=== PATIENT | female | born 1980 | race Caucasian/White ===

== ENCOUNTER 2019-03-02 15:43 | Emergency (ER) | payer BC ==
[2019-03-02 15:51] VITALS: BP 170/83
== END 2019-03-02 17:41 | disposition left against medical advice (07) ==
LOC: ED 15:43
DX: R03.0 Elevated blood-pressure reading, without diagnosis of hypertension (principal); R00.2 Palpitations; Z53.21 Procedure and treatment not carried out due to patient leaving prior to being seen by health care provider
CPT/HCPCS: 99282

== ENCOUNTER 2019-03-05 14:49 | Emergency (ER) | payer BC ==
--- NOTE | 2019-03-05 16:57 | ED ---
Hypertension - HPI Summary HPI Summary: 38 year old female presents with dizziness when she stands for the past couple days. She states that she checked her heart rate standing and it was 106. blood pressure has also been high. States it was at 140/90 today. States that she was unable to follow up with primary. She denies any chest pressure or shortness of breath. No states she is having vaginal bleeding for the past couple weeks. She is on high-dose progesterone to try and stop bleeding secondary to fibroids. h/h was recently checked and it was stable. She has been taking iron supplements. She denies any increase in vaginal bleeding. She denies any weakness. Denies any nausea vomiting. - History of Current Complaint Chief Complaint: EDHypertension Stated Complaint: HIGH BP,DIZZINESS PER PT Time Seen by Provider: 03/05/19 16:14 - Allergies/Home Medications Allergies/Adverse Reactions: Allergies Allergy/AdvReac Type Severity Reaction Status Date / Time cristy wort Allergy Intermediate Hives Uncoded 03/05/19 21:23 Home Medications: Home Medications Albuterol inh POWDER (NF) [Proair Respiclick] 1 - 2 puff INH Q4HR PRN 03/05/19 [ History Confirmed 03/05/19] Carbamazepine [Carbamazepine ER] 400 mg PO QPM 03/05/19 [History Confirmed 03/05] Iron 90 mg PO DAILY 03/05/19 [History Confirmed 03/05/19] Losartan TAB* [Cozaar TAB*] 50 mg PO DAILY 03/05/19 [History Confirmed 03/05/19] Norethindrone Acetate [Norethindrone AC (Lupaneta)] 5 mg PO TID 03/05/19 [ History Confirmed 03/05/19] PMH/Surg Hx/FS Hx/Imm Hx Endocrine/Hematology History: Denies: Hx Diabetes Cardiovascular History: Denies: Hx Pacemaker/ICD History: Denies: Hx Renal Disease Sensory History: Denies: Hx Hearing Aid Neurological History: Reports: Hx Seizures Psychiatric History: Denies: Hx Panic Disorder - Cancer History Hx Chemotherapy: No Hx Radiation Therapy: No - Surgical History Surgery Procedure, Year, and Place: EAR TUBES AGE 3 Infectious Disease History: No Infectious Disease History: Denies: Traveled Outside the [place] in Last 30 Days - Family History Known Family History: Positive: Non-Contributory - Social History Alcohol Use: Occasionally Substance Use Type: Reports: None Smoking Status (MU): Former Smoker Review of Systems Negative: Fever Negative: Chest Pain Negative: Shortness Of Breath Neurological: Other - dizziness All Other Systems Reviewed And Are Negative: Yes Physical Exam Triage Information Reviewed: Yes Vital Signs On Initial Exam: Initial Vitals Temp Pulse Resp BP Pulse Ox 98.1 F 90 16 134/92 100 03/05/19 14:52 03/05/19 14:52 03/05/19 14:52 03/05/19 14:52 03/05/19 14:52 Vital Signs Reviewed: Yes Appearance: Positive: Well-Appearing Skin: Positive: Warm, Dry Head/Face: Positive: Normal Head/Face Inspection Eyes: Positive: Normal, EOMI, JEM, Conjunctiva Clear ENT: Positive: Normal ENT inspection, Pharynx normal, TMs normal Respiratory/Lung Sounds: Positive: Clear to Auscultation, Breath Sounds Present Cardiovascular: Positive: Normal, RRR Musculoskeletal: Positive: Normal Neurological: Positive: Sensory/Motor Intact, Alert, Oriented to Person Place, Time, CN Intact II-III, Finger to Nose Psychiatric: Positive: Normal - [place] Coma Scale Best Eye Response: 4 - Spontaneous Best Motor Response: 6 - Obeys Commands Best Verbal Response: 5 - Oriented Coma Scale Total: 15 Procedures - Sedation Patient Received Moderate/Deep Sedation with Procedure: No Diagnostics - Vital Signs Vital Signs Temp Pulse Resp BP Pulse Ox 03/05/19 14:52 98.1 F 90 16 134/92 100 - Laboratory Result Diagrams: 03/05/19 17:04 03/05/19 17:04 Lab Statement: Any lab studies that have been ordered have been reviewed, and results considered in the medical decision making process. - EKG No standard instances Cardiac Rate: NL EKG Rhythm: Sinus Rhythm EKG Comparison: No Significant Change Summary of EKG Findings: sinus rhythm Re-Evaluation - Re-Evaluation First Eval Re-Evaluation Time: 17:52 Comment: became nauseous Hypertension Course/Dx - Course Course Of Treatment: 38 year old female presents with dizziness when she stands for the past couple days. She states that she checked her heart rate standing and it was 106. blood pressure has also been high. States it was at 140/90 today. States that she was unable to follow up with primary. She denies any chest pressure or shortness of breath. No states she is having vaginal bleeding for the past couple weeks. She is on high-dose progesterone to try and stop bleeding secondary to fibroids. h/h was recently checked and it was stable. She has been taking iron supplements. She denies any increase in vaginal bleeding. She denies any weakness. Denies any nausea vomiting. On exam has normal neuro exam. Is not currently dizzy. Lungs clear to auscultation. EKG shows sinus rhythm. wbc normal. hemoglobin 11.2. tsh normal. patient is not orthostatic. discussed should follow up with primary. could be dizzy due to vaginal bleeding which patient has hysterectomy scheduled in a month. patient understand and agrees with plan. - Diagnoses Differential Diagnosis/HQI PQRI: Hyperthyroidism, Renal Disease, Other - orthostatic hypotension Provider Diagnoses: Dizziness Discharge ED - Sign-Out/Discharge Documenting (check all that apply): Patient Departure - Discharge Plan Condition: Good Disposition: HOME Prescriptions: Ondansetron ODT TAB* [Zofran 4 MG Odt TAB*] 4 mg PO Q6H PRN #20 tab.odt PRN Reason: Nausea Patient Education Materials: Dizziness (ED) Referrals: Patricia Cheng NP [Primary Care Provider] - Additional Instructions: take zofran every 6 hours for nausea stand up slowly follow up with primary within 5 days Return to ED if develop any new or worsening symptoms - Billing Disposition and Condition Condition: GOOD Disposition: Home
[2019-03-05 17:12] LABS: ABS Lymphocytes 1.7 10^3/ul (1.0-4.8); ABS Monocytes 0.3 10^3/ul (0-0.8); ABS Neutrophils 3.9 10^3/ul (1.5-7.7); Hematocrit 32 % (35-47); Hemoglobin 11.2 g/dL (12.0-16.0); Lymphocyte % 28.5 %; Mean Corpuscular HGB Conc 35 g/dL (31-36); Mean Corpuscular Hemoglobin 31 pg (27-31); Mean Corpuscular Volume 89 fL (80-97); Mean Platelet Volume 6.9 fL (7.4-10.4); Nucleated Red Blood Cells % 0.1; Platelet Count 374 10^3/uL (150-450); Red Blood Count 3.55 10^6 /uL (3.70-4.87); Red Cell Distribution Width 14 % (10-15)
[2019-03-05 17:32] LABS: Albumin 4.2 g/dL (3.2-5.2); Albumin/Globulin Ratio 1.6 (1-3); BUN/Creatinine Ratio 7.2 (8-20); Calcium 8.7 mg/dL (8.6-10.3); EGFR Non-African American 94.2 (>60); Globulin 2.7 g/dL (2-4); Magnesium 2.2 mg/dL (1.9-2.7); Potassium 3.3 mmol/L (3.5-5.0); Total Bilirubin 0.2 mg/dL (0.2-1.0); Total Protein 6.9 g/dL (6.4-8.9)
[2019-03-05 17:47] LABS: Urine Appearance Clear; Urine Bilirubin Negative (Negative); Urine Blood 1+ (Negative); Urine Color Straw; Urine Glucose Negative (Negative); Urine Ketones Negative (Negative); Urine Nitrite Negative (Negative); Urine Protein Negative (Negative); Urine Specific Gravity 1.003 (1.010-1.030); Urine Urobilinogen Negative (Negative)
[2019-03-05 17:49] LABS: Urine Bacteria Absent (Absent); Urine Red Blood Cell Trace(0-2/hpf) (Absent); Urine Squamous Epithelial Cell Present (Absent); Urine White Blood Cell Trace(0-5/hpf) (Absent)
[2019-03-05] MEDS: Ondansetron ODT TAB* 4 MG PO ONE (17:50)
[2019-03-05 18:10] LABS: TSH (Thyroid Stimulating Horm) 0.66 mcIU/mL (0.34-5.60)
[2019-03-05 19:03] VITALS: BP 162/101
== END 2019-03-05 18:05 | disposition home or self-care (01) ==
LOC: ED 14:49
DX: R42 Dizziness and giddiness (principal); Z87.891 Personal history of nicotine dependence; Z79.899 Other long term (current) drug therapy
CPT/HCPCS: 36415; 80053; 81003; 81015; 83605; 83735; 84443; 84484; 85025; 87086; 93005; 99282; A9270-GY

== ENCOUNTER 2019-03-05 21:18 | Emergency (ER) | payer BC ==
[2019-03-05 23:02] LABS: ABS Lymphocytes 2.3 10^3/ul (1.0-4.8); ABS Monocytes 0.5 10^3/ul (0-0.8); Eosinophil % 0.1 %; Hematocrit 33 % (35-47); Hemoglobin 11.8 g/dL (12.0-16.0); Lymphocyte % 33.7 %; Mean Corpuscular HGB Conc 36 g/dL (31-36); Mean Corpuscular Hemoglobin 32 pg (27-31); Mean Corpuscular Volume 91 fL (80-97); Mean Platelet Volume 6.6 fL (7.4-10.4); Nucleated Red Blood Cells % 0.1; Platelet Count 403 10^3/uL (150-450); Red Blood Count 3.66 10^6 /uL (3.70-4.87); Red Cell Distribution Width 14 % (10-15); White Blood Count 6.9 10^3/uL (3.5-10.8)
[2019-03-05 23:14] LABS: Urine Appearance Clear; Urine Bilirubin Negative (Negative); Urine Blood 1+ (Negative); Urine Color Straw; Urine Glucose Negative (Negative); Urine Ketones Negative (Negative); Urine Nitrite Negative (Negative); Urine Protein Negative (Negative); Urine Specific Gravity 1.005 (1.010-1.030); Urine Urobilinogen Negative (Negative)
[2019-03-05] MEDS: NS 0.9% 1000 ML** 1,000 ML IV ONE (23:15)
[2019-03-05 23:17] LABS: Urine Bacteria Absent (Absent); Urine Red Blood Cell Trace(0-2/hpf) (Absent); Urine White Blood Cell Trace(0-5/hpf) (Absent)
[2019-03-05 23:53] LABS: TSH (Thyroid Stimulating Horm) 2.25 mcIU/mL (0.34-5.60)
[2019-03-06 00:44] LABS: Albumin 4.2 g/dL (3.2-5.2); Albumin/Globulin Ratio 1.5 (1-3); BUN/Creatinine Ratio 7.7 (8-20); Calcium 9.2 mg/dL (8.6-10.3); EGFR Non-African American 81.8 (>60); Globulin 2.8 g/dL (2-4); Magnesium 2.3 mg/dL (1.9-2.7); Potassium 3.5 mmol/L (3.5-5.0); Total Bilirubin 0.2 mg/dL (0.2-1.0)
--- NOTE | 2019-03-06 00:52 | ED ---
Dizziness - HPI Summary HPI Summary: Patient is a 38 y/o F presenting to [facility] for evaluation of elevated BP and dizziness. She states that around 1130 03/05/19, she experienced severe dizziness that is characterized as feeling near syncopal. Patient was evaluated at [facility] 03/05/19, EKG was normal, and patient was discharged to home. However, after discharge, she spoke with her PCP, Dr. Mason, who advised her to return to [facility] for evaluation for possible admission. She states that since 03/01/19, she has been experiencing "racing" HR with ambulation. Patient additionally endorses increased fatigued, STRINGER, dry cough, and some nausea. CP, SOB, edema, abdominal pain, vomiting, diarrhea, fever, and sore throat are denied. No similar previous presentation of Sx is noted. She notes that she has been drinking more fluids than typically since Sx onset. Patient is on progesterone to control bleeding from a large fibroid. The patient states that the bleeding has been present for years. She notes that she is scheduled for hysterectomy this March 2019. Recent increase of her progesterone is reported. Hx of seizure disorder is endorsed. No thyroid issues reported. She denies recent changes to her tegretol and states that she has been taking this medication consistently. On manager sign, nothing is noted to aggravate/alleviate Sx. , Artis, is present in the room. Home medications and allergies are reviewed. - History Of Current Complaint Chief Complaint: EDHypertension Stated Complaint: SENT BACK BY DOCTOR FOR HIGH BP PER PT Time Seen by Provider: 03/05/19 21:59 Hx Obtained From: Patient Timing: Days Character: Lightheaded - near syncope, Dizzy Aggravating Factor(s): Nothing Alleviating Factor(s): Nothing Associated Signs And Symptoms: Positive: Nausea, Palpitations - racing HR, Other : - positive - fatigue, SRTINGER, dry cough; negative - edema, abdominal pain, fever, sore throat. Negative: Vomiting, Diarrhea, Chest Pain, SOB - Allergies/Home Medications Allergies/Adverse Reactions: Allergies Allergy/AdvReac Type Severity Reaction Status Date / Time cristy wort Allergy Intermediate Hives Uncoded 03/05/19 21:23 PMH/Surg Hx/FS Hx/Imm Hx Endocrine/Hematology History: Denies: Hx Diabetes Cardiovascular History: Denies: Hx Pacemaker/ICD History: Denies: Hx Renal Disease Sensory History: Denies: Hx Hearing Aid Neurological History: Reports: Hx Seizures Psychiatric History: Denies: Hx Panic Disorder - Cancer History Hx Chemotherapy: No Hx Radiation Therapy: No - Surgical History Surgery Procedure, Year, and Place: EAR TUBES AGE 3 Infectious Disease History: No Infectious Disease History: Denies: Traveled Outside the [place] in Last 30 Days - Family History Known Family History: Negative: Cardiac Disease, Hypertension, Diabetes - Social History Alcohol Use: Occasionally Substance Use Type: Reports: None Smoking Status (MU): Former Smoker Review of Systems - ROS Summary Review of Systems Summary: Home Medications Medication Instructions Recorded Confirmed Type carBAMazepine [Carbamazepine ER] 200 mg PO QAM 04/23/12 03/05/19 History Albuterol inh POWDER (NF) [Proair 1 - 2 puff INH Q4HR PRN 03/05/19 03/05/19 History Respiclick] Carbamazepine [Carbamazepine ER] 400 mg PO QPM 03/05/19 03/05/19 History Iron 90 mg PO DAILY 03/05/19 03/05/19 History Losartan TAB* [Cozaar TAB*] 50 mg PO DAILY 03/05/19 03/05/19 History Norethindrone Acetate 5 mg PO TID 03/05/19 03/05/19 History [Norethindrone AC (Lupaneta)] Ondansetron ODT TAB* [Zofran 4 MG 4 mg PO Q6H PRN #20 tab.odt 03/05/19 03/05/19 Rx Odt TAB*] Positive: Fatigue. Negative: Fever Negative: Sore Throat Cardiovascular: Other - positive - elevated BP Positive: Palpitations - racing HR . Negative: Chest Pain Positive: Cough. Negative: Shortness Of Breath Positive: Nausea. Negative: Abdominal Pain, Vomiting, Diarrhea Negative: Edema Positive: Headache All Other Systems Reviewed And Are Negative: Yes Physical Exam - Summary Physical Exam Summary: General: Well-developed, Well-nourished female. No acute distress. HEENT: Normocephalic, Atraumatic. Eyes: Conjuctiva normal, PERRL. Oropharynx: Clear, mucous membranes moist, (-) exudates. Neck: Soft, FROM, (-) lymphadenopathy, (-) thyromegaly, (-) JVD. Cardiovascular: Normal sinus rhythm, (-) murmur. Lungs: Clear to auscultation bilaterally (-) wheezes, (-) rales, (-) rhonchi. Abdomen: Soft, non-tender, non-distended, (-) organomegaly, normal bowel sounds. Back: (-) CVA tenderness Extremities: No edema. Skin: Warm, dry, (-) rash. Neuro: Alert and oriented x3, no focal deficits. Psychiatric: Mood normal, affect normal. Triage Information Reviewed: Yes Vital Signs On Initial Exam: Initial Vitals Temp Pulse Resp BP Pulse Ox 98.5 F 102 16 142/98 100 03/05/19 21:19 03/05/19 21:19 03/05/19 21:19 03/05/19 21:19 03/05/19 21:19 Vital Signs Reviewed: Yes Procedures - Sedation Patient Received Moderate/Deep Sedation with Procedure: No Diagnostics - Vital Signs Vital Signs Temp Pulse Resp BP Pulse Ox 03/06/19 00:15 78 132/84 100 03/06/19 00:00 79 99 03/05/19 23:45 77 118/80 99 03/05/19 23:19 84 127/81 98 03/05/19 23:18 81 98 03/05/19 22:46 142/92 03/05/19 22:45 89 149/103 100 03/05/19 22:16 88 100 03/05/19 22:14 92 155/105 100 03/05/19 21:19 98.5 F 102 16 142/98 100 - Laboratory Lab Results: Lab Results 03/05/19 03/05/19 03/05/19 Range/Units 22:55 22:55 22:55 WBC 6.9 (3.5-10.8) 10^3/uL RBC 3.66 L (3.70-4.87) 10^6 /uL Hgb 11.8 L (12.0-16.0) g/dL Hct 33 L (35-47) % MCV 91 (80-97) fL MCH 32 H (27-31) pg MCHC 36 (31-36) g/dL RDW 14 (10-15) % Plt Count 403 (150-450) 10^3/uL MPV 6.6 L (7.4-10.4) fL Neut % (Auto) 58.3 % Lymph % (Auto) 33.7 % [place] % (Auto) 7.5 % Eos % (Auto) 0.1 % Baso % (Auto) 0.4 % Absolute Neuts (auto) 4.0 (1.5-7.7) 10^3/ul Absolute Lymphs (auto) 2.3 (1.0-4.8) 10^3/ul Absolute Monos (auto) 0.5 (0-0.8) 10^3/ul Absolute Eos (auto) 0.0 (0-0.6) 10^3/ul Absolute Basos (auto) 0.0 (0-0.2) 10^3/ul Absolute Nucleated RBC 0.0 10^3/ul Nucleated RBC % 0.1 Sodium 140 (135-145) mmol/L Potassium 3.5 (3.5-5.0) mmol/L Chloride 107 (101-111) mmol/L Carbon Dioxide 26 (22-32) mmol/L Anion Gap 7 (2-11) mmol/L BUN 6 (6-24) mg/dL Creatinine 0.78 (0.51-0.95) mg/dL Est GFR ( Amer) 99.0 (>60) Est GFR (Non-Af Amer) 81.8 (>60) BUN/Creatinine Ratio 7.7 L (8-20) Glucose 105 H (70-100) mg/dL Lactic Acid 1.1 (0.5-2.0) mmol/L Calcium 9.2 (8.6-10.3) mg/dL Magnesium 2.3 (1.9-2.7) mg/dL Total Bilirubin 0.20 (0.2-1.0) mg/dL AST 18 (13-39) U/L ALT 19 (7-52) U/L Alkaline Phosphatase 32 L (34-104) U/L Troponin I 0.00 (<0.03) ng/mL Total Protein 7.0 (6.4-8.9) g/dL Albumin 4.2 (3.2-5.2) g/dL Globulin 2.8 (2-4) g/dL Albumin/Globulin Ratio 1.5 (1-3) TSH 2.25 (0.34-5.60) mcIU/mL Urine Color Urine Appearance Urine pH (5-9) Ur Specific Logan (1.010-1.030) Urine Protein (Negative) Urine Ketones (Negative) Urine Blood (Negative) Urine Nitrate (Negative) Urine Bilirubin (Negative) Urine Urobilinogen (Negative) Ur Leukocyte Esterase (Negative) Urine WBC (Auto) (Absent) Urine RBC (Auto) (Absent) Urine Bacteria (Absent) Urine Glucose (Negative) 03/05/19 Range/Units 23:00 WBC (3.5-10.8) 10^3/uL RBC (3.70-4.87) 10^6 /uL Hgb (12.0-16.0) g/dL Hct (35-47) % MCV (80-97) fL MCH (27-31) pg MCHC (31-36) g/dL RDW (10-15) % Plt Count (150-450) 10^3/uL MPV (7.4-10.4) fL Neut % (Auto) % Lymph % (Auto) % [place] % (Auto) % Eos % (Auto) % Baso % (Auto) % Absolute Neuts (auto) (1.5-7.7) 10^3/ul Absolute Lymphs (auto) (1.0-4.8) 10^3/ul Absolute Monos (auto) (0-0.8) 10^3/ul Absolute Eos (auto) (0-0.6) 10^3/ul Absolute Basos (auto) (0-0.2) 10^3/ul Absolute Nucleated RBC 10^3/ul Nucleated RBC % Sodium (135-145) mmol/L Potassium (3.5-5.0) mmol/L Chloride (101-111) mmol/L Carbon Dioxide (22-32) mmol/L Anion Gap (2-11) mmol/L BUN (6-24) mg/dL Creatinine (0.51-0.95) mg/dL Est GFR ( Amer) (>60) Est GFR (Non-Af Amer) (>60) BUN/Creatinine Ratio (8-20) Glucose (70-100) mg/dL Lactic Acid (0.5-2.0) mmol/L Calcium (8.6-10.3) mg/dL Magnesium (1.9-2.7) mg/dL Total Bilirubin (0.2-1.0) mg/dL AST (13-39) U/L ALT (7-52) U/L Alkaline Phosphatase (34-104) U/L Troponin I (<0.03) ng/mL Total Protein (6.4-8.9) g/dL Albumin (3.2-5.2) g/dL Globulin (2-4) g/dL Albumin/Globulin Ratio (1-3) TSH (0.34-5.60) mcIU/mL Urine Color Straw Urine Appearance Clear Urine pH 7.0 (5-9) Ur Specific Logan 1.005 L (1.010-1.030) Urine Protein Negative (Negative) Urine Ketones Negative (Negative) Urine Blood 1+ A (Negative) Urine Nitrate Negative (Negative) Urine Bilirubin Negative (Negative) Urine Urobilinogen Negative (Negative) Ur Leukocyte Esterase Negative (Negative) Urine WBC (Auto) Trace(0-5/hpf) (Absent) Urine RBC (Auto) Trace(0-2/hpf) (Absent) Urine Bacteria Absent (Absent) Urine Glucose Negative (Negative) Result Diagrams: 03/05/19 22:55 03/05/19 22:55 Lab Statement: Any lab studies that have been ordered have been reviewed, and results considered in the medical decision making process. Dizzy Course/Dx - Course Course Of Treatment: 38-year-old female returns to the emergency room tonight with dizziness and elevated blood pressure. Patient was seen here earlier. Still was feeling poorly at home. Spoke with on-call physician from PCP office. Patient was referred back here for evaluation, treatment and possible admission. Patient has significant dizziness that started on Saturday. Of note is she has had extensive vaginal bleeding. Was started on higher dose of progesterone on Saturday. Patient did take an extra blood pressure medication at home prior to coming in. Patient was given IV fluids. Blood pressure was initially quite elevated but came down nicely during her stay. Patient felt significantly better. Workup essentially negative. Patient declined admission at this time. Was discharged home. She notes that she has a PCP follow-up in the morning at 9 AM. She was advised to return any time should her symptoms worsen. - Diagnoses Provider Diagnoses: Dizziness, Elevated BP without diagnosis of hypertension Discharge ED - Sign-Out/Discharge Documenting (check all that apply): Patient Departure - discharge - Discharge Plan Condition: Stable Disposition: HOME Patient Education Materials: Dizziness (ED) Forms: *Work Release Referrals: Patricia Cheng NP [Primary Care Provider] - 3 Days Dalton Wray MD [Medical Doctor] - 3 Days Additional Instructions: PLEASE RETURN TO ED FOR ANY NEW OR WORSENING SYMPTOMS. PLEASE FOLLOW UP WITH YOUR PRIMARY CARE PHYSICIAN AND CARDIOLOGY WITHIN THREE DAYS. - Billing Disposition and Condition Condition: STABLE Disposition: Home - Attestation Statements Document Initiated by Basiliae: Yes Documenting Scribe: ARASELI AMEZCUA Provider For Whom Scribe is Documenting (Include Credential): SUSANA WILHELM MD Scribe Attestation: ARASELI Chilel, scribed for SUSANA WILHELM MD on 03/06/19 at 0639. Scribe Documentation Reviewed: Yes Provider Attestation: The documentation as recorded by the ARASELI ghotra accurately reflects the service I personally performed and the decisions made by me, SUSANA WILHELM MD Status of Scribe Document: Viewed
[2019-03-06 01:02] VITALS: BP 129/91
== END 2019-03-06 01:02 | disposition home or self-care (01) ==
LOC: ED 21:18
DX: R03.0 Elevated blood-pressure reading, without diagnosis of hypertension (principal); R42 Dizziness and giddiness; Z87.891 Personal history of nicotine dependence; Z79.899 Other long term (current) drug therapy
CPT/HCPCS: 36415; 80053; 81003; 83605; 83735; 84443; 84484; 85025; 99282

== ENCOUNTER 2019-04-10 05:33 | Inpatient (IN) | payer BC ==
[~2019-04-10 05:33] MED LIST: Buffered Lidocaine 1% SYRIN* 1 ML/SYRINGE INTRADERM ONE
--- OUTSIDE RECORDS SUMMARY | 2019-04-10 05:36 | XMS REPORT | Continuity of Care Document ---
:1980 External Reference #:[id number] Author Name Yuni Dickey MD (transmitted by agent of provider Robyn Boss) Address [address] [place] [address] Care Team Providers Name Role Phone Patricia Cheng FNP - Family Care Team Information Instructional Support Technician Problems Active Problems Provider Date Epilepsy Triny Fong NP Onset: 05/25/2014 Obstructive sleep apnea syndrome Fabiana Messina MD Onset: 07/09/2016 Social History Type Date Description Comments Sex Unknown Tobacco Use Start: Unknown End: Former Cigarette Smoker Unknown Smoking Status Reviewed: 04/02/19 Former Cigarette Smoker ETOH Use Rarely consumes alcohol Tobacco Use Start: Unknown End: Patient is a former smoker Unknown Exercise Type/Frequency Exercises sporadically Allergies, Adverse Reactions, Alerts Active Allergies Reaction Severity Comments Date [facility] hives 09/10/2008 Medications Active Medications SIG Qnty Indications Ordering Date Provider Ibuprofen one tablet by 28tabs N92.1 Yuni Dickey 04/02/2019 600mg Tablets mouth q6 as MD needed pain Oxycodone-Acetaminophe one tablet by 30tabs N92.1 Yuni Dickey, 2019 n mouth q4 hours MD 5-325mg Tablets as needed strong pain Norethindrone Acetate 1 by mouth twice 30tabs Yuni Dickey 01/09/2019 5mg per day MD Tablets Vitamin D 1 po qd Ermias Kellogg 11/13/2017 (Ergocalciferol) Jordyn Aldrich 2000Unit Capsules Claritin 1 tab daily as Unknown 06/12/2016 10mg Capsules needed Carbamazepine one by mouth 270tabs Ermias Kellogg 09/10/2008 200mg every morning Jordyn Aldrich Tablets and 2 every night at bedtime Iron 1 by mouth twice Unknown 325(65Fe) mg Tablets daily Multi Vitamin Daily 1 by mouth every Unknown day Tablets Vitamin B Complex 1 by mouth every Unknown day Tablets Losartan Potassium 1 by mouth twice Unknown 50mg daily Tablets History Medications Cryselle-28 1 by mouth every 28tabs N92.0 Yris Carney, 11/06/2018 - day, skip FAMILY RESOURCE MANAGEMENT PROFESSOR-Cde 02/25/2019 0.3-30mg-mcg Tablets placebo pills and take active pills every day with no break. Medications Administered in Office Medication SIG Qnty Indications Ordering Provider Date PPD Injection Nurse Visit Boris 10/19/2008 Immunizations Description No Information Available Vital Signs Date Vital Result Comment 04/02/2019 12:56pm Height 67 inches 5'7" Weight 209.00 lb Heart Rate 87 /min BP Systolic 139 mmHg BP Diastolic 92 mmHg O2 % BldC Oximetry 100 % BMI (Body Mass Index) 32.7 kg/m2 Last Menstrual Period [id number] 12/08/2018 3:24pm Height 67 inches 5'7" Weight 205.00 lb Heart Rate 79 /min BP Systolic Sitting 134 mmHg BP Diastolic Sitting 86 mmHg Respiratory Rate 20 /min Body Temperature 98.0 F O2 % BldC Oximetry 100 % BMI (Body Mass Index) 32.1 kg/m2 Results Test Acquired Date Facility Test Result H/L Range Note CBC Auto 04/02/2019 [facility] White Blood 6.4 10^3/uL Normal 3.5-10.[address] [place] [address] [phone] Red Blood Count 4.10 10^6/uL Normal 3.70-4.87 Hemoglobin 12.9 g/dL Normal 12.0-16.0 Hematocrit 38 % Normal 35-47 Mean Corpuscular Volume 93 fL Normal 80-97 Mean Corpuscular Hemoglobin 32 pg High 27-31 Mean Corpuscular HGB Conc 34 g/dL Normal 31-36 Red Cell Distribution Width 14 % Normal 10-15 Platelet Count 417 10^3/uL Normal 150-450 Mean Platelet Volume 6.9 fL Low 7.4-10.4 Abs Neutrophils 4.1 10^3/uL Normal 1.5-7.7 Abs Lymphocytes 1.9 10^3/uL Normal 1.0-4.8 Abs Monocytes 0.4 10^3/uL Normal 0-0.8 Abs Eosinophils 0.0 10^3/uL Normal 0-0.6 Abs Basophils 0.0 10^3/uL Normal 0-0.2 Abs Nucleated RBC 0.0 10^3/uL Granulocyte % 63.8 % Lymphocyte % 29.9 % Monocyte % 5.8 % Eosinophil % 0.0 % Basophil % 0.5 % Nucleated Red Blood Cells % 0.1 Laboratory test 04/02/2019 [facility] Ferritin 19.9 ng/mL Normal 11-[address] [place] [address] [phone] Carbamazepine (Tegretol) 7.9 g/mL Normal 4.0-12.0 Hypercoag Panel 04/02/2019 [facility] Anti Thrombin 99 % 80 - 130 1 (CMC) [address] [place] [address] [phone] Homocysteine 8.6 nmol/mL 4.8-13.0 2 Protein C Activity 143 % 70 - 150 3 Protein S Activity 106 % 50 - 160 4 Activated Protein C 04/02/2019 [facility] Act Protein C 2.8 > or=2.[address] [place] [address] [phone] Act Protein C Resist Interp See Comment 5 Lupus Anticoagulant 04/02/2019 [facility] Lupus See Comment [address] [address] Inter [phone] Prothrombin Time(Lac) 11.2 sec 9.4 - 12.5 Lac Inr 1.0 0.9-1.1 7 Lac Aptt 27 sec 25 - 37 DRVVT Screen Ratio 1.27 ratio Abnormal <1.20 8 DRVVT Mix Ratio 1.16 ratio <1.20 9 DRVVT Confirm Ratio 1.10 ratio <1.20 10 Thrombin Time (Bovine), P 20.2 sec 11 Lupus Anticoagulant Interpreta See Comment 12 Lupus Anticoagulant Review By See Comment 13 Factor 5 Leiden 04/02/2019 [facility] Factor V Leiden Negative Negative Mutation [address] [place] [address] [phone] Factor V Leiden Interpretation See Comment 14 Factor V Leiden Reviewed By See Comment 15 Cardiolipin 04/02/2019 [facility] Phospholipid Ab 16.0 MPL High 16 Igg/Igm [address] IgM, [place] [address] [phone] Phospholipid Ab IgG < 9.4 GPL 17 Factor II 04/02/2019 [facility] Prothrombin Negative Negative (Prothrombin) [address] [place] [address] [phone] Prothrombin [id number] Interp See Comment 18 Prothrombin Mutation Review By See Comment 19 Laboratory test 04/02/2019 [facility] Test negative finding Urine Laboratory test 03/05/2019 [facility] D Dimer < 200 ng/mL Normal Less [address] Quantitative Than 230 [place] [address] [phone] CBC Auto Diff 03/03/2019 [facility] White Blood Count 7.6 10^3/ uL Normal 3.5-10.[address] [place] [address] [phone] Red Blood Count 3.64 10^6/uL Low 3.70-4.87 Hemoglobin 11.0 g/dL Low 12.0-16.0 Hematocrit 33 % Low 35-47 Mean Corpuscular Volume 91 fL Normal 80-97 Mean Corpuscular Hemoglobin 30 pg Normal 27-31 Mean Corpuscular HGB Conc 33 g/dL Normal 31-36 Red Cell Distribution Width 14 % Normal 10-15 Platelet Count 373 10^3/uL Normal 150-450 Mean Platelet Volume 7.0 fL Low 7.4-10.4 Abs Neutrophils 4.6 10^3/uL Normal 1.5-7.7 Abs Lymphocytes 2.5 10^3/uL Normal 1.0-4.8 Abs Monocytes 0.5 10^3/uL Normal 0-0.8 Abs Eosinophils 0.0 10^3/uL Normal 0-0.6 Abs Basophils 0.0 10^3/uL Normal 0-0.2 Abs Nucleated RBC 0.0 10^3/uL Granulocyte % 60.0 % Lymphocyte % 33.0 % Monocyte % 6.7 % Eosinophil % 0.0 % Basophil % 0.3 % Nucleated Red Blood Cells % 0.2 CBC Auto 02/27/2019 [facility] White Blood 6.1 10^3/uL Normal 3.5-10.8 Diff 101 [facility] Count [place], [place] [address] [phone] Red Blood Count 3.63 10^6/uL Low 3.70-4.87 Hemoglobin 11.0 g/dL Low 12.0-16.0 Hematocrit 32 % Low 35-47 Mean Corpuscular Volume 89 fL Normal 80-97 Mean Corpuscular Hemoglobin 30 pg Normal 27-31 Mean Corpuscular HGB Conc 34 g/dL Normal 31-36 Red Cell Distribution Width 13 % Normal 10-15 Platelet Count 327 10^3/uL Normal 150-450 Mean Platelet Volume 7.5 fL Normal 7.4-10.4 Abs Neutrophils 3.1 10^3/uL Normal 1.5-7.7 Abs Lymphocytes 2.5 10^3/uL Normal 1.0-4.8 Abs Monocytes 0.4 10^3/uL Normal 0-0.8 Abs Eosinophils 0.0 10^3/uL Normal 0-0.6 Abs Basophils 0.0 10^3/uL Normal 0-0.2 Abs Nucleated RBC 0.0 10^3/uL Granulocyte % 51.1 % Lymphocyte % 41.9 % Monocyte % 6.6 % Eosinophil % 0.0 % Basophil % 0.4 % Nucleated Red Blood Cells % 0.1 Laboratory test 02/27/2019 [facility] Ferritin 15.6 ng/mL Normal 11-307 finding [address] [place], [place] [id number] [phone] Vitamin B12 And 01/12/2019 [facility] Vitamin B12 277 pg/mL Normal 180-914 21 Folate Serum [address] [place], [place] [id number] [phone] Folic Acid (Folate) > 20.00 ng/mL >3.99 Iron & Iron Binding 01/12/2019 [facility] Iron 150 g/dL Normal 50-[address] [place] [address] [phone] Unsaturated Iron Binding < 493 g/dL Total Iron Binding Capacity 508 g/dL High 250-450 Transferrin 363 mg/dL High 203-362 % Iron Saturation 30 % Normal 15-55 Laboratory test 01/12/2019 [facility] Ferritin 21.5 Normal 11- 307 finding 101 [facility] ng/[place] [address] [phone] CBC Auto Diff 01/12/2019 [facility] White Blood 7.3 Normal 3.5 -10.[address] Count 10^3/[place] [address] [phone] Red Blood Count 4.12 10^6/uL Normal 3.70-4.87 Hemoglobin 12.3 g/dL Normal 12.0-16.0 Hematocrit 36 % Normal 35-47 Mean Corpuscular Volume 87 fL Normal 80-97 Mean Corpuscular Hemoglobin 30 pg Normal 27-31 Mean Corpuscular HGB Conc 34 g/dL Normal 31-36 Red Cell Distribution Width 19 % High 10-15 Platelet Count 351 10^3/uL Normal 150-450 Mean Platelet Volume 7.5 fL Normal 7.4-10.4 Abs Neutrophils 4.5 10^3/uL Normal 1.5-7.7 Abs Lymphocytes 2.3 10^3/uL Normal 1.0-4.8 Abs Monocytes 0.5 10^3/uL Normal 0-0.8 Abs Eosinophils 0.0 10^3/uL Normal 0-0.6 Abs Basophils 0.0 10^3/uL Normal 0-0.2 Abs Nucleated RBC 0.0 10^3/uL Granulocyte % 61.2 % Lymphocyte % 31.7 % Monocyte % 6.8 % Eosinophil % 0.0 % Basophil % 0.3 % Nucleated Red Blood Cells % 0.0 CBC Auto 11/27/2018 [facility] White Blood 6.2 10^3/uL Normal 3.5-10.[address] [place] [address] [phone] Red Blood Count 4.09 10^6/uL Normal 3.70-4.87 Hemoglobin 10.8 g/dL Low 12.0-16.0 Hematocrit 33 % Low 35-47 Mean Corpuscular Volume 80 fL Normal 80-97 Mean Corpuscular Hemoglobin 26 pg Low 27-31 Mean Corpuscular HGB Conc 33 g/dL Normal 31-36 Red Cell Distribution Width 28 % High 10-15 Platelet Count 326 10^3/uL Normal 150-450 Mean Platelet Volume 7.2 fL Low 7.4-10.4 Abs Neutrophils 4.0 10^3/uL Normal 1.5-7.7 Abs Lymphocytes 1.8 10^3/uL Normal 1.0-4.8 Abs Monocytes 0.4 10^3/uL Normal 0-0.8 Abs Eosinophils 0.0 10^3/uL Normal 0-0.6 Abs Basophils 0.0 10^3/uL Normal 0-0.2 Abs Nucleated RBC 0.0 10^3/uL Granulocyte % 63.7 % Lymphocyte % 29.7 % Monocyte % 6.3 % Eosinophil % 0.0 % Basophil % 0.3 % Nucleated Red Blood Cells % 0.0 Cell Morphology 11/27/2018 [facility] Anisocytosis 2+ [address] [place] [address] [phone] Laboratory test 11/27/2018 [facility] Pathologist Review (SEE [address] NOTE) [place] [address] [phone] Laboratory test 11/19/2018 [facility] Carbamazepine 7.3 Normal 4.0- finding [address] (Tegretol) g/mL 12.0 [place] [address] [phone] Comp Metabolic 11/19/2018 [facility] Sodium 137 Normal 135- Panel [address] mmol/L 145 [place] [address] [phone] Potassium 4.0 mmol/L Normal 3.5-5.0 Chloride 103 mmol/L Normal 101-111 Co2 Carbon Dioxide 27 mmol/L Normal 22-32 Anion Gap 7 mmol/L Normal 2-11 Glucose 115 mg/dL High 70-100 Blood Urea Nitrogen 12 mg/dL Normal 6-24 Creatinine 0.80 mg/dL Normal 0.51-0.95 BUN/Creatinine Ratio 15.0 Normal 8-20 Calcium 9.5 mg/dL Normal 8.6-10.3 Total Protein 6.8 g/dL Normal 6.4-8.9 Albumin 4.1 g/dL Normal 3.2-5.2 Globulin 2.7 g/dL Normal 2-4 Albumin/Globulin Ratio 1.5 Normal 1-3 Total Bilirubin 0.20 mg/dL Normal 0.2-1.0 Alkaline Phosphatase 46 U/L Normal 34-104 Alt 15 U/L Normal 7-52 Ast 19 U/L Normal 13-39 Egfr Non- 79.4 >60 Egfr 96.1 >60 23 CBC Auto 10/22/2018 [facility] White Blood 4.1 10^3/uL Normal 3.5-10.[address] [place] [address] [phone] Red Blood Count 4.10 10^6/uL Normal 3.70-4.87 Hemoglobin 9.1 g/dL Low 12.0-16.0 Hematocrit 29 % Low 35-47 Mean Corpuscular Volume 70 fL Low 80-97 Mean Corpuscular Hemoglobin 22 pg Low 27-31 Mean Corpuscular HGB Conc 32 g/dL Normal 31-36 Red Cell Distribution Width 19 % High 10-15 Platelet Count 401 10^3/uL Normal 150-450 Mean Platelet Volume 7.2 fL Low 7.4-10.4 Abs Neutrophils 2.0 10^3/uL Normal 1.5-7.7 Abs Lymphocytes 1.6 10^3/uL Normal 1.0-4.8 Abs Monocytes 0.4 10^3/uL Normal 0-0.8 Abs Eosinophils 0.0 10^3/uL Normal 0-0.6 Abs Basophils 0.0 10^3/uL Normal 0-0.2 Abs Nucleated RBC 0.0 10^3/uL Granulocyte % 49.9 % Lymphocyte % 38.3 % Monocyte % 10.6 % Eosinophil % 0.1 % Basophil % 1.1 % Nucleated Red Blood Cells % 0.0 Laboratory test 10/22/2018 [facility] Ferritin 6.1 ng/mL Low 11-[address] [place] [address] [phone] TSH (Thyroid Stim Horm) 0.87 mcIU/mL Normal 0.34-5.60 1 Direct factor Xa inhibitor therapy (rivaroxaban (Xarelto), apixaban (Eliquis), edoxaban (Savaysa)) may interfere with the functional Xa based AT assay and cause an overestimation of AT activity thus potentially masking diagnosis of AT deficiency. Suggest clinical correlation and consider repeat AT testing remote from direct factor Xa inhibitor therapy, if clinically indicated. ADDITIONAL INFORMATION This test has been modified from the husbandry technician's instructions. Its performance characteristics were determined by [facility] in a manner consistent with CLIA requirements. This test has not been cleared or approved by the U.S. Food and Drug Administration. Test Performed by: [place] [address] Manager Order: Chilango Valente M.D. Ph.D.; CLIA# [id number] 2 ADDITIONAL INFORMATION Liquid Chromatography-Tandem Mass Spectrometry (LC-MS/MS) This test was developed and its performance characteristics determined by [facility] in a manner consistent with CLIA requirements. This test has not been cleared or approved by the U.S. Food and Drug Administration. Test Performed by: [place] [address] Manager Order: Chilango Valente M.D. Ph.D.; CLIA# [id number] 3 ADDITIONAL INFORMATION This test has been modified from the husbandry technician's instructions. Its performance characteristics were determined by [facility] in a manner consistent with CLIA requirements. This test has not been cleared or approved by the U.S. Food and Drug Administration. Test Performed by: [place] [address] Manager Order: Chilango Valente M.D. Ph.D.; CLIA# [id number] 4 Anticoagulants (for example oral direct thrombin inhibitors like dabigatran, anti-Xa inhibitors like rivaroxaban, apixaban or edoxaban), heparin levels greater than 1 U/mL, inhibitors of the APTT test system (for example lupus anticoagulant), inhibitors of bovine factor V (for example antibodies that may arise in patients treated with certain bovine topical thrombin preparations) may produce a falsely normal or elevated protein S activity result. Suggest clinical correlation and if indicated consider repeat assay of protein S activity and/or antigen in the absence of anticoagulation therapy. ADDITIONAL INFORMATION This test has been modified from the husbandry technician's instructions. Its performance characteristics were determined by [facility] in a manner consistent with CLIA requirements. This test has not been cleared or approved by the U.S. Food and Drug Administration. Test Performed by: [place] [address] Manager Order: Chilango Valente M.D. Ph.D.; CLIA# [id number] 5 No evidence of resistance to Activated Protein C (APC). Normal result of APC resistance (APCRV) assay virtually excludes the patient as a carrier for the factor V Leiden mutation. Thus DNA based testing for factor V Leiden mutation is not indicated. Note: The APCRV assay has greater than 99% sensitivity for detecting presence of factor V Leiden mutation. Discrepant results of plasma based activated protein C resistance ratio (APCRV) and DNA based factor V Leiden testing may occur in recipients of liver or allogeneic hematopoietic stem cell transplants, or due to anticoagulant effects such as excess heparin, direct thrombin inhibitors argatroban (Acova), bivalirudin (Angiomax) or dabigatran (Pradaxa) or direct factor Xa inhibitors rivaroxaban (Xarelto), apixaban (Eliquis) and edoxaban (Savaysa) or a sample mix up. Suggest clinical correlation. Test Performed by: [place] [address] Manager Order: Chilango Valente M.D. Ph.D.; CLIA# [id number] 6 RESULT: See Lupus Anticoagulant Interp. 7 ADDITIONAL INFORMATION Standard intensity warfarin therapeutic range: 2.0 to 3.0 High intensity warfarin therapeutic range: 2.5 to 3.5 8 Test Performed by: [place] [address] Manager Order: Chilango Valente M.D. Ph.D.; CLIA# [id number] 9 Test Performed by: [address] [address] Manager Order: Chilango Valente M.D. Ph.D.; CLIA# [id number] 10 Test Performed by: [place] [address] Manager Order: Chilango Valente M.D. Ph.D.; CLIA# [id number] 11 REFERENCE VALUE 15.8 - 24.9 Test Performed by: [place] [address] Manager Order: Chilango Valente M.D. Ph.D.; CLIA# [id number] 12 IMPRESSION: There is no clear evidence of lupus anticoagulant (LAC) in the overall data context; see comments and suggest clinical correlation. COMMENTS: Mixing study of the borderline prolonged dilute Damien viper venom time (DRVVT screen ratio 1.27; normal <1.20) shows no inhibition (DRVVT mix ratio 1.16; normal <1.20), and additional phospholipid does not significantly shorten the DRVVT (confirmatory ratio 1.10; normal <1.20). Altogether, the DRVVT test results provide no clear or definite evidence of lupus anticoagulant (LAC) by this methodology, including that the borderline abnormal DRVVT screen ratio is of doubtful significance. The normal activated partial thromboplastin time (APTT) provides no additional evidence of lupus anticoagulant (LAC) by this methodology. The normal prothrombin time (PT) and thrombin time (TT) provide no evidence of anticoagulation effects (warfarin, heparin, direct-acting anticoagulants), and also suggest normally functioning extrinsic and common procoagulant pathways, within assay sensitivities. Serologic antiphospholipid antibody testing in the [facility] is negative for IgG anticardiolipin antibodies, although borderline or weakly positive for IgM anticardiolipin antibodies, the latter providing no clear or definite evidence of significant antiphospholipid antibodies by this methodology; suggest clinical correlation. Interpreted by Memo Velasquez M.D./maykel Test Performed by: [place] [address] Manager Order: Chilango Valente M.D. Ph.D.; CLIA# [id number] 13 RESULT: Chilango Velasquez Jr., M.D. 14 This individual DOES NOT have the factor V Leiden (R506Q) mutation. Although the factor V Leiden mutation is absent, the individual may have other genetic and environmental risk factors for thrombosis. Consider genetic consultation and counseling of potentially affected family members regarding laboratory testing. ADDITIONAL INFORMATION This test is a direct mutation analysis using PCR amplification, signal generation and release by cleavage of sequence specific alleles ([employer], [facility], [place], [place]). This test has been modified from the husbandry technician's instructions. Its performance characteristics were determined by [facility] in a manner consistent with CLIA requirements. This test has not been cleared or approved by the U.S. Food and Drug Administration. 15 RESULT: Radha Paredes M.D. Test Performed by: [facility] [place] [address] Manager Order: Chilango Valente M.D. Ph.D.; CLIA# [id number] Interpretation: Weak Positive (15.0-39.9) REFERENCE VALUE <15.0 (Negative) 17 REFERENCE VALUE <15.0 (Negative) Test Performed by: [facility] [address] [place] [address] Manager Order: Chilango Valente M.D. Ph.D.; CLIA# [id number] 18 This individual DOES NOT have the Prothrombin [id number] mutation. Although the Prothrombin [id number] mutation is absent, the individual may have other genetic and environmental risk factors for thrombosis. Consider genetic consultation and counseling of potentially affected family members regarding laboratory testing. ADDITIONAL INFORMATION This test is a direct mutation analysis using PCR amplification, signal generation and release by cleavage of sequence specific alleles ([employer], [facility], [place], [place]). This test has been modified from the husbandry technician's instructions. Its performance characteristics were determined by [facility] in a manner consistent with CLIA requirements. This test has not been cleared or approved by the U.S. Food and Drug Administration. 19 RESULT: Radha Paredes M.D. Test Performed by: [place] [address] Manager Order: Chilango Valente M.D. Ph.D.; CLIA# [id number] 20 Please note: The following may produce a false positive D Dimer test: - Rheumatoid factor greater than 60 IU/ml - Plasma hemoglobin greater than 0.05 gm/dl - Bilirubin greater than 50 mg/dl - Lipids greater than 1000 mg/dl - FDP greater than 20 ug/ml 21 Normal Range 180 to 914 Indeterminate Range 145 to 180 Deficient Range <145 22 Normocytic anemia. Reviewed by Patricia Patterson MD 23 Because ethnic data is not always readily available, this report includes an eGFR for both -Americans and non- Americans. The National Kidney Disease Education Program (NKDEP) does not endorse the use of the MDRD equation for patients that are not between the ages of 18 and 70, are , have extremes of body size, muscle mass, or nutritional status, or are non- or non-. According to the National Kidney Foundation, irrespective of diagnosis, the stage of the disease is based on the level of kidney function: Stage Description GFR(mL/min/1.73 m(2)) 1 Kidney damage with normal or decreased GFR 90 2 Kidney damage with mild decrease in GFR 60-89 3 Moderate decrease in GFR 30-59 4 Severe decrease in GFR 15-29 5 Kidney failure <15 (or dialysis) Procedures Date Code Description Status 10/27/2018 [id number] Mammogram Completed Medical Devices Description No Information Available Encounters Type Date Location Provider Dx Diagnosis Office Visit 12/08/2018 [facility] Yuni Dickey, N92.1 Excessive and 3:00p of [facility] [employer] at [facility] frequent menstruation with irregular cycle Office Visit 11/21/2018 [facility] Ermias Kellogg G40.209 Local-[facility] symptc 9:45a Clinic Jordyn Aldrich epi w cmplx prt seiz,not ntrct,w/o stat epi Z79.899 Other back feeder plywood layup line (current) drug therapy Office Visit 11/06/2018 4:30p [facility], N92.0 Excessive and [facility] FAMILY RESOURCE MANAGEMENT PROFESSOR-Cde frequent menstruation with regular cycle D25.9 Leiomyoma of uterus, unspecified D50.0 Iron deficiency anemia secondary to blood loss (chronic) Office Visit 10/22/2018 9:30a [facility], N92.0 Excessive and [facility] FAMILY RESOURCE MANAGEMENT PROFESSOR-Cde frequent menstruation with regular cycle N64.59 Other signs and symptoms in breast N39.3 Stress incontinence (female) (male) Assessments Date Code Description Provider 04/03/2019 D25.1 Intramural leiomyoma of uterus Yuni Dickey MD 04/03/2019 N92.1 Excessive and frequent menstruation with Yuni Dickey MD irregular cycle 04/03/2019 Z83.2 Family history of diseases of the blood and Yuni Dickey MD blood-forming organs and certain disorders involving the immune mechanism 04/03/2019 G40.209 Localization-related (focal) (partial) Yuni Dickey MD symptomatic epilepsy and epileptic syndromes with complex partial seizures, not intractable, without status epilepticus 04/02/2019 N92.1 Excessive and frequent menstruation with Yuni Dickey MD irregular cycle 04/02/2019 D25.1 Intramural leiomyoma of uterus Yuni Dickey MD 04/02/2019 Z83.2 Family history of diseases of the blood and Yuni Dickey MD blood-forming organs and certain disorders involving the immune mechanism 04/02/2019 G40.209 Localization-related (focal) (partial) Yuni Dickey MD symptomatic epilepsy and epileptic syndromes with complex partial seizures, not intractable, without status epilepticus 02/02/2019 D25.1 Intramural leiomyoma of uterus Yuni Dickey MD 12/08/2018 N92.1 Excessive and frequent menstruation with Yuni Dickey MD irregular cycle 11/21/2018 G40.209 Localization-related (focal) (partial) Ermias Aldrich M.D. symptomatic epilepsy and epileptic syndromes with complex partial seizures, not intractable, without status epilepticus 11/21/2018 Z79.899 Other correction (current) drug therapy Ermias Aldrich M.D. 11/06/2018 N92.0 Excessive and frequent menstruation with Yris Carney, FAMILY RESOURCE MANAGEMENT PROFESSOR -Cde regular cycle 11/06/2018 D25.9 Leiomyoma of uterus, unspecified Yris Angelika, FAMILY RESOURCE MANAGEMENT PROFESSOR-Cde 11/06/2018 D50.0 Iron deficiency anemia secondary to blood Yris Carney FAMILY RESOURCE MANAGEMENT PROFESSOR-Cde loss (chronic) 10/22/2018 N92.0 Excessive and frequent menstruation with Yris Carney, FAMILY RESOURCE MANAGEMENT PROFESSOR -Cde regular cycle 10/22/2018 N64.59 Other signs and symptoms in breast Yris Angelika, FAMILY RESOURCE MANAGEMENT PROFESSOR-Cde 10/22/2018 N39.3 Stress incontinence (female) (male) Yris Carney FAMILY RESOURCE MANAGEMENT PROFESSOR-Cde Plan of Treatment Future Appointment(s):04/10/2019 8:00 am - [facility] - Yuni Dickey MDN92.1 Excessive and frequent menstruation with irregular cycleNew Medication:Ibuprofen 600 mg - one tablet by mouth q6 as needed painOxycodone-Acetaminophen 5-325 mg - one tablet by mouth q4 hours as needed strong painComments:Plan: Laparotomy, Supracervical HysterectomyHigh risk for thrombosis based on Family history, major pelvic surgery.Plan: Heparin 5000 units subcutaneously every 8 hours starting pre operatively and continuing until discharge from the hospital. SCDs intra op and post op until ambulatingUrine test on admitPre op Abx prophylaxis, warmer. Reviewed risks/benefits/alternatives (see office form) at length. All questions answered. Discussed option of UAE or Lupron to potentially decrease size of uterus to make potentially make laparoscopic hysterectomy feasible or decrease blood loss, pt declines. Discussed possibility of "mini periods" after FANI.Discussed rec routine cervical screening after Supracervical HysterectomyPlan admit to [facility] post op with likely d/c home ZrjxxkS57.1 Intramural leiomyoma of eovtqoU86.2 Family history of diseases of the blood and blood-forming organs and certain disorders involving the immune zmcbgdvwoW21.209 Localization-related (focal) (partial) symptomatic epilepsy and epileptic syndromes with complex partial seizures, not intractable, without status epilepticusComments:Check Tegretol level Functional Status Functional Condition Comment Date Status none Active Mental Status Description No Information Available Referrals Refer to Reason for Referral Status Appt Date Lalo Arguelles MD Discuss feasibility of Laparoscopic Hysterectomy. Sent PT still needs to call to make appt 12/17/[address] [place] [address] [place] [address] [phone] Pete Moore MD Closed [address] [place] [address] [phone]
--- OUTSIDE RECORDS SUMMARY | 2019-04-10 05:36 | XMS REPORT | Continuity of Care Document ---
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 Problems Active Problems Provider Date Epilepsy Triny Fong NP Onset: 05/25/2014 Obstructive sleep apnea syndrome Fabiana Messina MD Onset: 07/09/2016 Difficulty breathing Fabiana Messina MD Onset: 06/13/2016 Social History Type Date Description Comments Sex Unknown Tobacco Use Start: Unknown End: Former Cigarette Smoker Unknown Smoking Status Reviewed: 04/02/19 Former Cigarette Smoker ETOH Use Rarely consumes alcohol Tobacco Use Start: Unknown End: Patient is a former smoker Unknown Exercise Type/Frequency Exercises sporadically Allergies, Adverse Reactions, Alerts Active Allergies Reaction Severity Comments Date [facility] hiv 09/10/2008 Medications Active Medications SIG Qnty Indications Ordering Date Provider Norethindrone Acetate 1 by mouth three 60tabs Yris Carney, 01/09/2019 5mg times/day LOCK OPERATOR-Cde Tablets Vitamin D 1 po qd Ermias [...] 1 by mouth every Unknown day Tablets Lopressor 50mg twice a day Skylar, 50mg Tablets NANCY Gomez Vitamin B Complex 1 by mouth every Unknown day Tablets History Medications Cryselle-28 1 by mouth every 28tabs N92.0 Yris Carney, 11/06/2018 - day, skip LOCK OPERATOR-Cde 02/25/2019 0.3-30mg-mcg Tablets placebo pills and take [...] Mass Index) 32.7 kg/m2 Last Menstrual Period [id number] 12/08/2018 3:24pm Height 67 inches 5'7" Weight 205.00 lb Heart Rate 79 /min BP Systolic Sitting 134 mmHg BP Diastolic Sitting 86 mmHg Respiratory Rate 20 /min Body Temperature 98.0 F O2 % BldC Oximetry 100 % BMI (Body Mass Index) 32.1 kg/m2 Results Test Acquired Facility Test Result H/L Range Note Date Laboratory 04/02/2019 [facility] Test negative test finding Urine Laboratory 03/05/2019 [facility] D Dimer < 200 ng/mL Normal Less 1 test finding [address] Quantitative [address] [place] [address] [phone] CBC Auto Diff 03/03/2019 [facility] White Blood 7.6 10^3/uL Normal 3.5-10.[address] [place] [address] [phone] Red Blood Count 3.64 10^6/uL Low 3.70-4.87 [...] Blood Cells % 0.2 CBC Auto 02/27/2019 [facility] White Blood 6.1 10^3/uL Normal 3.5-10.[address] [place] [address] [phone] Red Blood Count 3.63 10^6/uL Low 3.70-4.87 [...] Blood Cells % 0.1 Laboratory test 02/27/2019 [facility] Ferritin 15.6 Normal 11- [address] ng/[place] [address] [phone] CBC Auto Diff 01/12/2019 [facility] White Blood 7.3 Normal 3.5 -10.[address] Count 10^3/[place] [address] [phone] Red Blood Count 4.12 10^6/uL Normal 3.70-4.87 [...] Red Blood Cells % 0.0 Laboratory test 01/12/2019 [facility] Ferritin 21.5 ng/mL Normal 11-[address] [place] [address] [phone] Iron & Iron 01/12/2019 [facility] Iron 150 g/dL Normal 50- [address] [place] [address] [phone] Unsaturated Iron Binding < 493 g/dL Total Iron Binding Capacity 508 g/dL High 250-450 Transferrin 363 mg/dL High 203-362 % Iron Saturation 30 % Normal 15-55 Vitamin B12 01/12/2019 [facility] Vitamin B12 277 pg/mL Normal 180-9[address] [place] [address] [phone] Folic Acid (Folate) > 20.00 ng/mL >3.99 Laboratory test 11/27/2018 [facility] Pathologist (SEE NOTE) [address] [place] [address] [phone] Cell Morphology 11/27/2018 [facility] Anisocytosis 2+ [address] [place] [address] [phone] CBC Auto Diff 11/27/2018 [facility] White Blood Count 6.2 Normal 3.5- [address] 10^3/uL 10.8 [place] [address] [phone] Red Blood Count 4.09 10^6/uL Normal 3.70-4.87 [...] Nucleated Red Blood Cells % 0.0 Laboratory 11/19/2018 [facility] Carbamazepine 7.3 Normal 4.0- 12.[address] (Tegretol) g/[place] [address] [phone] Comp Metabolic 11/19/2018 [facility] Sodium 137 Normal 135- [address] mmol/[place] [address] [phone] Potassium 4.0 mmol/L Normal 3.5-5.0 Chloride 103 [...] Egfr Non- 79.4 >60 Egfr 96.1 >60 4 CBC Auto 10/22/2018 [facility] White Blood 4.1 10^3/uL Normal 3.5-10.[address] [place] [address] [phone] Red Blood Count 4.10 10^6/uL Normal 3.70-4.87 [...] Blood Cells % 0.0 Laboratory test 10/22/2018 [facility] Ferritin 6.1 ng/mL Low 11-[address] [place] [address] [phone] TSH (Thyroid Stim Horm) 0.87 mcIU/mL Normal 0.34-5.60 1 Please note: The following may produce a false positive D Dimer test: - Rheumatoid factor greater than 60 IU/ml - Plasma hemoglobin greater than 0.05 gm/dl - Bilirubin greater than 50 mg/dl - Lipids greater than 1000 mg/dl - FDP greater than 20 ug/ml 2 Normal Range 180 to 914 Indeterminate Range 145 to 180 Deficient Range <145 3 Normocytic anemia. Reviewed by Patricia Patterson MD 4 Because ethnic data is not always readily [...] dialysis) Procedures Date Code Description Status 10/27/2018 [id number] Mammogram Completed Medical Devices Description No Information Available Encounters Type Date Location Provider Dx Diagnosis Office Visit 12/08/2018 [facility] Yuni Dickey, N92.1 Excessive and 3:00p of [facility] frequent menstruation with irregular cycle Office Visit 11/21/2018 [facility] Ermias Kellogg G40.209 Local-[facility] symptc 9:45a Clinic Jordyn Aldrich epi w cmplx prt seiz,not ntrct,w/o stat epi Z79.899 Other assisted (current) drug therapy Office Visit 11/06/2018 4:30p [facility] Yris Carney, N92.0 Excessive and [facility] LOCK OPERATOR-Cde frequent menstruation with regular cycle D25.9 Leiomyoma of uterus, unspecified D50.0 Iron deficiency anemia secondary to blood loss (chronic) [facility].0 Excessive and [facility] LOCK OPERATOR-Cde frequent menstruation with regular cycle N64.59 Other signs and symptoms in breast N39.3 Stress incontinence (female) (male) Assessments Date Code Description Provider 02/02/2019 D25.1 Intramural leiomyoma of uterus Yuni Dickey MD 12/08/2018 N92.1 Excessive and frequent menstruation with Yuni Dickey MD irregular cycle 11/21/2018 G40.209 Localization-related (focal) (partial) Ermias Aldrich M.D. symptomatic epilepsy and epileptic syndromes with complex partial seizures, not intractable, without status epilepticus 11/21/2018 Z79.899 Other rat exterminator (current) drug therapy Ermias Aldrich M.D. 11/06/2018 N92.0 Excessive and frequent menstruation with Yris Carney, LOCK OPERATOR -Cde regular cycle 11/06/2018 D25.9 Leiomyoma of uterus, unspecified Yris Carney LOCK OPERATOR-Cde 11/06/2018 D50.0 Iron deficiency anemia secondary to blood Yris Carney LOCK OPERATOR-Cde loss (chronic) 10/22/2018 N92.0 Excessive and frequent menstruation with Yris Carney, LOCK OPERATOR -Cde regular cycle 10/22/2018 N64.59 Other signs and symptoms in breast Yris Carney LOCK OPERATOR-Cde 10/22/2018 N39.3 Stress incontinence (female) (male) Yris Carney LOCK OPERATOR-Cde Plan of Treatment Future Appointment(s):04/17/2019 10:30 am - Yuni Dickey MD at [facility]04/10/2019 8:00 am - Yuni Dickey MD at [facility] Functional Status Functional Condition Comment Date Status none Active Mental Status Description No Information Available Referrals Refer to Reason for Referral Status Appt Lalo Arguelles MD Discuss feasibility of Laparoscopic Hysterectomy. Sent PT still needs to call to make appt 12/17/[address] [place] [address] [place] [address] [phone] Pete Moore MD Closed [address] [place] [address] [phone]
[2019-04-10] MEDS ORDERED: Lactated Ringers 1000 ML Bag* 1,000 ML IV SCH (06:00)
[2019-04-10] MEDS ORDERED: Famotidine IV* 10 MG/ML 2 ML (20 mg) IV ONE (06:00)
[2019-04-10] MEDS ORDERED: Heparin VIAL(*) 5000 UNITS/ML VIAL (FIVE THOUSAND) ONE ×2 (06:22→14:44)
[2019-04-10] MEDS ORDERED: Dexamethasone IV* 4 MG/ML 1 ML (4 MG) ONE (06:22)
[2019-04-10] MEDS ORDERED: ceFAZolin 2 GM PREMIX in ORs 2 GM/50 ML BAG ONE (06:23)
[2019-04-10] MEDS ORDERED: Famotidine IV* 10 MG/ML 2 ML (20 mg) ONE (06:23)
[2019-04-10] MEDS: Dexamethasone IV* 4 MG/ML 1 ML (4 MG) IV SLOW PU ONE ×2 (06:55→06:56)
[2019-04-10] MEDS ORDERED: Atracurium* 10 MG/ML 10 ML VIAL ONE (07:08)
[2019-04-10] MEDS ORDERED: Midazolam* 1 MG/ML 5 ML VIAL (5 MG) ONE (07:08)
[2019-04-10] MEDS ORDERED: fentaNYL* 50 MCG/ML 5 ML VIAL (250 MCG VIAL) ONE (07:08)
[2019-04-10] MEDS ORDERED: Lidocaine 2% PF * 5 ML VIAL ONE (07:10)
[2019-04-10] MEDS ORDERED: Ketorolac INJ* 30 MG/ML 1 ML VIAL ONE (07:10)
[2019-04-10] MEDS ORDERED: Ondansetron INJ* 2 MG/ML VIAL ONE ×3 (07:10→11:37)
[2019-04-10] MEDS ORDERED: Propofol* 10 MG/ML 20 ML BTL ONE (07:10)
[2019-04-10] MEDS ORDERED: Scopolamine 1.5 mg* PATCH ONE (07:41)
[2019-04-10] MEDS ORDERED: EPHEDrine (Pressors)* 50 MG/ML VIAL ONE (07:47)
[2019-04-10] MEDS ORDERED: Phenylephrine 40 MCG/ML SYRINGE ONE (07:47)
[2019-04-10] MEDS ORDERED: DiMENhydriNATE IV* 50 MG/ML VIAL IV PUSH PRN (08:05)
[2019-04-10] MEDS ORDERED: Naloxone* 0.4 MG/ML 1 ML VIAL IV PRN (08:05)
[2019-04-10] MEDS ORDERED: Ondansetron INJ* 2 MG/ML VIAL IV PRN ×4 (08:05→18:00)
[2019-04-10] MEDS ORDERED: fentaNYL* 50 MCG/ML 2 ML VIAL (100 MCG VIAL) ONE ×5 (08:10→10:52)
[2019-04-10] MEDS: fentaNYL* 50 MCG/ML 2 ML VIAL (100 MCG VIAL) IV PRN ×5 (10:09→10:54)
[2019-04-10] MEDS ORDERED: HYDROmorphone INJ1* 1 MG/ML SYRINGE ONE ×2 (10:55→13:15)
[2019-04-10] MEDS: HYDROmorphone INJ1* 1 MG/ML SYRINGE IV PRN ×3 (10:57→13:16)
[2019-04-10] MEDS ORDERED: Morphine PCA 5 MG/ML * Titrate per Protocol PCA SCH (11:00)
[2019-04-10] MEDS ORDERED: DiMENhydriNATE IV* 50 MG/ML VIAL ONE (11:02)
[2019-04-10] MEDS ORDERED: Morphine 4 MG/ML VIAL (1 ml) 4 MG/ML VIAL ONE (12:11)
[2019-04-10] MEDS ORDERED: HYDROmorphone PCA* 20 MG/20 ML PCA.SYRING ONE (13:15)
[2019-04-10 14:05] LABS: ABS Lymphocytes 0.4 10^3/ul (1.0-4.8); ABS Monocytes 0.5 10^3/ul (0-0.8); ABS Neutrophils 15.5 10^3/ul (1.5-7.7); Hematocrit 37 % (35-47); Hemoglobin 12.3 g/dL (12.0-16.0); Lymphocyte % 2.2 %; Mean Corpuscular HGB Conc 33 g/dL (31-36); Mean Corpuscular Hemoglobin 31 pg (27-31); Mean Corpuscular Volume 92 fL (80-97); Platelet Count 382 10^3/uL (150-450); Red Blood Count 4.01 10^6 /uL (3.70-4.87); Red Cell Distribution Width 13 % (10-15); White Blood Count 16.4 10^3/uL (3.5-10.8)
[2019-04-10] MEDS: Heparin VIAL(*) 5000 UNITS/ML VIAL (FIVE THOUSAND) SUBCUT SCH ×2 (14:51→21:39)
[2019-04-10] MEDS ORDERED: Albuterol HFA INHALER* 8 gm MDI INH PRN (16:23)
[2019-04-10] MEDS: Losartan TAB* 25 MG PO SCH ×2 (16:41→19:58)
[2019-04-10] MEDS: carBAMazepine ER TAB(*) 200 MG PO SCH (16:46)
[2019-04-10] MEDS: LR IV SCH ×2 (17:25→23:52)
[2019-04-10] MEDS ORDERED: Ibuprofen TAB* 600 MG PO PRN (17:57)
[2019-04-10] MEDS ORDERED: HYDROmorphone PCA* 20 MG/20 ML PCA.SYRING PCA SCH (18:00)
--- NOTE | 2019-04-11 01:47 | OP ---
CC: [facility] OPERATIVE REPORT: DATE OF OPERATION: 04/10/19 DATE OF : 76 SURGEON: Dr. Dickey. MS SQL DBA: Dr. Arguelles. ANESTHESIOLOGIST: Dr. Huertas. ANESTHESIA: General endotracheal anesthesia. PRE-OP DIAGNOSES: Menorrhagia, iron deficiency anemia, fibroid uterus. POST-OP DIAGNOSES: Menorrhagia, iron deficiency anemia, fibroid uterus. OPERATIVE PROCEDURE: Laparotomy, supracervical hysterectomy, bilateral salpingectomy. ESTIMATED BLOOD LOSS: 200 cc. SPECIMEN: Uterus and bilateral fallopian tubes. FLUIDS: Per anesthesia. RIZO: 400 cc clear urine. FINDINGS: Enlarged 14-week fibroid uterus. Normal appearing ovaries bilaterally. Normal appearing fallopian tubes bilaterally. COMPLICATIONS: None. COUNTS: Sponge, lap, and needle count were correct x2. CONDITION: The patient tolerated the procedure well and was brought to recovery room awake and in stable condition. DESCRIPTION OF PROCEDURE: The patient was brought to the operating room. When general anesthesia was found to be adequate. The patient was prepped and draped in the usual sterile fashion in the dorsal supine position. The vagina was prepped and Rizo catheter was placed under sterile conditions. Time-out was performed. Pfannenstiel skin incision was made approximately 2 cm above the symphysis pubis and this was carried down to the underlying layer of fascia. The fascia was incised in the midline and the fascial incision was extended laterally using the curved Narayan scissors. The muscle was in the midline. The peritoneum was identified and entered bluntly. The pelvis was examined with the above findings noted. The bowel was packed away with moist laparotomy sponges. Two Lena clamps were placed on the cornua and used for retraction. The round ligaments on both sides were identified, doubly clamped, transected and suture ligated with 0 Vicryl. The anterior leaf of the broad ligament was incised along the bladder reflection to the midline from both sides. The bladder was then gently dissected off the lower segment using sharp dissection. The uteroovarian ligaments on both sides were doubly clamped and transected. A free tie was placed and then a suture ligature of 0 Vicryl was placed. Hemostasis was visualized. The uterine arteries were then skeletonized bilaterally. They were doubly clamped with Gilmar clamps, transected and each suture ligated with 0 Vicryl suture x2. Again hemostasis was assured. The uterus was amputated from the cervix using the cautery under direct visualization. The cervix was closed with [id number] sutures of 0 Vicryl. Again excellent hemostasis was noted. The pelvis was copiously irrigated with warm normal saline. All the pedicles were examined and found to be hemostatic. All the laparotomy sponges were removed. The peritoneum was closed using 3-0 Vicryl. The fascia was closed using 0 Vicryl. The subcutaneous tissue was reapproximated with 3 interrupted sutures of 3-0 Vicryl and the skin was closed with Monocryl in a subcuticular fashion. Steri-Strips were applied with Mastisol. A pressure dressing was applied. Sponge, lap, and needle count were correct x2 and the patient was brought to the recovery room awake and in stable condition with a Rizo catheter draining clear urine. [id number]/[facility]PS #: [id number] MTDD
[2019-04-11 05:31] LABS: Urine Appearance Clear; Urine Bilirubin Negative (Negative); Urine Blood Negative (Negative); Urine Color Straw; Urine Glucose Negative (Negative); Urine Ketones Negative (Negative); Urine Nitrite Negative (Negative); Urine Protein Negative (Negative); Urine Specific Gravity 1.003 (1.010-1.030); Urine Urobilinogen Negative (Negative)
[2019-04-11] MEDS: Heparin VIAL(*) 5000 UNITS/ML VIAL (FIVE THOUSAND) SUBCUT SCH ×3 (06:13→22:39)
[2019-04-11] MEDS: LR IV SCH (06:16)
[2019-04-11 07:23] LABS: ABS Monocytes 0.5 10^3/ul (0-0.8); Hematocrit 29 % (35-47); Hemoglobin 10.5 g/dL (12.0-16.0); Lymphocyte % 36.3 %; Mean Corpuscular HGB Conc 36 g/dL (31-36); Mean Corpuscular Hemoglobin 33 pg (27-31); Mean Corpuscular Volume 92 fL (80-97); Mean Platelet Volume 6.8 fL (7.4-10.4); Platelet Count 295 10^3/uL (150-450); Red Blood Count 3.16 10^6 /uL (3.70-4.87); Red Cell Distribution Width 13 % (10-15); White Blood Count 5.6 10^3/uL (3.5-10.8)
[2019-04-11] MEDS: Losartan TAB* 25 MG PO SCH ×2 (07:44→20:47)
[2019-04-11] MEDS: carBAMazepine ER TAB(*) 200 MG PO SCH ×2 (07:51→20:57)
[2019-04-11] MEDS: Ibuprofen TAB* 600 MG PO PRN ×3 (07:54→19:40)
[2019-04-11] MEDS ORDERED: oxyCODONE/Acetamin 5/325 MG* TAB PO PRN ×2 (08:13→08:17)
[2019-04-11] MEDS: oxyCODONE/Acetamin 5/325 MG* TAB PO PRN ×3 (09:13→19:40)
[2019-04-11] MEDS: Docusate CAP* 100 MG PO SCH ×2 (14:33→20:47)
[2019-04-11] MEDS ORDERED: Senna TAB 8.6 mg* TAB PO PRN (16:50)
[2019-04-12] MEDS: oxyCODONE/Acetamin 5/325 MG* TAB PO PRN ×2 (01:32→09:42)
[2019-04-12] MEDS: Ibuprofen TAB* 600 MG PO PRN ×2 (01:33→08:07)
[2019-04-12] MEDS: Heparin VIAL(*) 5000 UNITS/ML VIAL (FIVE THOUSAND) SUBCUT SCH (05:40)
[2019-04-12 07:22] VITALS: BP 130/69
[2019-04-12] MEDS: Losartan TAB* 25 MG PO SCH (08:07)
[2019-04-12] MEDS: Docusate CAP* 100 MG PO SCH (08:07)
[2019-04-12] MEDS: carBAMazepine ER TAB(*) 200 MG PO SCH (08:15)
--- NOTE | 2019-04-12 11:02 | DS ---
CC: [facility] * DISCHARGE SUMMARY: DATE OF ADMISSION: 04/10/19 DATE OF DISCHARGE: 04/12/19 HOSPITAL COURSE: Mrs. Haider was admitted to the hospital on 04/10/19 with a diagnosis of menorrhagia, fibroid uterus, and iron-deficiency anemia. She is status post a laparotomy, supracervical hysterectomy, and bilateral salpingectomy. Surgeon, Dr. Dickey; College Athlete, Dr. Arguelles. The estimated blood loss was 200 cc. The patient did well postoperatively. Initially, she did not receive good pain management from the morphine SHELL FISHERMAN, however, got better pain management with the Dilaudid SHELL FISHERMAN for postop day 0. On postop day 1, she was switched to p.o. Percocet which was very adequate for pain management. Her postop day 1 hemoglobin and hematocrit were 10.5/29. Her vital signs have been stable throughout. She has been afebrile throughout. She has been ambulating. Her pain is well managed with by mouth ibuprofen and Percocet. She has flatus , normal appetite, eating a regular diet. She will be discharged today, on postop day 2, with by mouth pain medication. She will continue her losartan and her Tegretol, same doses that she was taking preoperatively. She has a postop appointment this Saturday at our office. [id number]/[facility] #: [id number] CRISTEL
--- NOTE | 2019-04-15 12:29 | DS ---
DISCHARGE SUMMARY: ADDENDUM: CONDITION: Stable. DISPOSITION: Home. [id number]/[facility] #: [id number] CRISTEL
== END 2019-04-12 11:40 | disposition home or self-care (01) | DRG 519 ==
LOC: AA 05:33 → SSU 17:05
PROVIDERS: ADMIT Obstetrics & Gynecology; ATTEND Obstetrics & Gynecology
PROC: 0UT90ZL Resection of Uterus, Supracervical, Open Approach (ICD-10-PCS; principal; 2019-04-10 07:30)
PROC: 0UT70ZZ Resection of Bilateral Fallopian Tubes, Open Approach (ICD-10-PCS; 2019-04-10 07:30)
DX: D25.1 Intramural leiomyoma of uterus (principal); G40.209 Localization-related (focal) (partial) symptomatic epilepsy and epileptic syndromes with complex partial seizures, not intractable, without status epilepticus; I10 Essential (primary) hypertension; D50.0 Iron deficiency anemia secondary to blood loss (chronic); G47.33 Obstructive sleep apnea (adult) (pediatric); F41.9 Anxiety disorder, unspecified; F32.9 Major depressive disorder, single episode, unspecified; J45.909 Unspecified asthma, uncomplicated; E66.9 Obesity, unspecified; Z68.32 Body mass index [BMI] 32.0-32.9, adult
CPT/HCPCS: 36415; 81003; 81025; 85025; 88307; A9270-GY; J0690; J1100; J1170; J1240; J1644; J1885; J2250; J2270; J2405; J2704; J3010